=== PATIENT | male | born 1975 | race Caucasian/White ===

== ENCOUNTER → 2016-11-11 | Outpatient (CLI) | payer MEDICAID ==
[2016-11-11 18:48] LABS: BUN 18 mg/dL (7-18)
[2016-11-11 19:20] LABS: GFR (ESTIMATED) 92 ML/MIN (>60)
== END ==
LOC: LAB 14:57
PROVIDERS: Otolaryngology
DX: H91.21 Sudden idiopathic hearing loss, right ear (principal); Z01.818 Encounter for other preprocedural examination

== ENCOUNTER → 2016-11-19 | Outpatient (CLI) | payer MEDICAID ==
--- NOTE | 2016-11-22 09:12 | RADIOLOGY REPORT PS360 ---
MRI-BRAIN W/WO HISTORY: Right hearing loss, vertigo, dizziness, tinnitus and right ear SUDDEN RIGHT HEARING LOSS, VERTIGO ORDERING PHYSICIAN: David Springer MD PATIENT AGE: 41 years COMPARISON: None TECHNIQUE: Standard multiplanar multiecho sequences are performed without and with gadolinium enhancement . FINDINGS: No midline shift or mass effect is evident. No intracranial hemorrhage or hydrocephalus. No evidence of acute infarction. No enhancing lesions. Thin section pre and post enhanced axial and coronal T1-weighted images are obtained. There is no evidence of cerebellopontine angle mass or enhancing lesion. The nerve VII and VIII complexes have an unremarkable appearance. There is some mild asymmetric prominence of the CSF anterior to the right cerebellopontine angle. Questionable clinical significance. There is no mass or enhancement in this region. This may be due to a small arachnoid cyst. This area measures approximately 13 x 9 mm. There are several T2 hyperintensities in the periventricular and subcortical region more numerous on the right in the parietal lobes and frontal lobes. At least one T2 hyperintensity is present in the left parieto-occipital junction. Small T2 hyperintensities are also present in the farley radiata on both sides more numerous on the right. These do not enhance. These T2 hyperintensities are more prominent on FLAIR images. They do not show restricted diffusion. No mastoid effusion. No sinus air-fluid level. The pituitary and optic chiasm have an unremarkable appearance. IMPRESSION: 1. Suspect a small arachnoid cyst inferior to the right CP angle. 2. No enhancing cerebellopontine angle mass is evident. 3. Scattered T2 white matter hyperintensities more numerous on the right as described above. These are somewhat more prominent than one would expect for ischemic gliotic change for this age patient. That however is included in the differential diagnosis. Also included in the differential diagnosis is multiple sclerosis. Migraine headache is also a consideration. IMPRESSION:
== END ==
LOC: RAD 09:16
DX: H91.21 Sudden idiopathic hearing loss, right ear (principal); H93.11 Tinnitus, right ear; H90.41 Sensorineural hearing loss, unilateral, right ear, with unrestricted hearing on the contralateral side; R42 Dizziness and giddiness
CPT/HCPCS: A9576